=== PATIENT | male | born 1990 | race Caucasian/White ===

== ENCOUNTER 2016-04-12 21:18 | Emergency (ER) | payer OTHER, MEDICAID ==
[~2016-04-12] VITALS: Ht 185.4 cm; Wt 77.3 kg
[2016-04-12 23:49] VITALS: BP 135/90
== END 2016-04-12 23:51 | disposition home or self-care (01) ==
LOC: EMS 21:25
DX: H66.92 Otitis media, unspecified, left ear (principal)
CPT/HCPCS: 99283

== ENCOUNTER 2016-06-12 04:54 | Emergency (ER) | payer OTHER, MEDICAID ==
[~2016-06-12] VITALS: Ht 185.4 cm; Wt 77.3 kg
[2016-06-12] MEDS ORDERED: LIDOCAINE HCL BUFFERED 1% 20 ML VIAL INJ ONE (08:00)
[2016-06-12] MEDS ORDERED: PERTUSS(ACELL),DIPH,TET VAC/PF 0.5 ML VIAL IM ONE (08:00)
[2016-06-12 09:21] VITALS: BP 132/92
== END 2016-06-12 09:50 | disposition home or self-care (01) ==
LOC: EMS 04:55
DX: S01.81XA Laceration without foreign body of other part of head, initial encounter (principal); V19.9XXA Pedal cyclist (driver) (passenger) injured in unspecified traffic accident, initial encounter; Y93.89 Activity, other specified; Y92.89 Other specified places as the place of occurrence of the external cause; Y99.8 Other external cause status
CPT/HCPCS: 12013; 70450; 70486; 90471; 90715; 99284; J3490

== ENCOUNTER 2016-06-18 15:50 | Emergency (ER) | payer OTHER, MEDICAID ==
[~2016-06-18] VITALS: Ht 188 cm; Wt 70.0 kg
[2016-06-18] MEDS ORDERED: CEPH500 PO (15:55)
[2016-06-18 16:20] VITALS: BP 111/81
== END 2016-06-18 16:43 | disposition home or self-care (01) ==
LOC: EMS 15:51
DX: Z48.02 Encounter for removal of sutures (principal)
CPT/HCPCS: 99281; 99406

== ENCOUNTER 2016-11-26 13:03 | Emergency (ER) | payer OTHER, MEDICAID ==
[~2016-11-26] VITALS: Ht 185.4 cm; Wt 77.3 kg
[~2016-11-26 13:03] MED LIST: CEPH500 PO
[2016-11-26 16:34] VITALS: BP 129/92
== END 2016-11-26 17:28 | disposition home or self-care (01) ==
LOC: EMS 13:04
DX: S70.01XA Contusion of right hip, initial encounter (principal); R03.0 Elevated blood-pressure reading, without diagnosis of hypertension; F17.210 Nicotine dependence, cigarettes, uncomplicated; F12.90 Cannabis use, unspecified, uncomplicated; W19.XXXA Unspecified fall, initial encounter; Y93.01 Activity, walking, marching and hiking; Y92.488 Other paved roadways as the place of occurrence of the external cause; Y99.8 Other external cause status
CPT/HCPCS: 73502; 99284

== ENCOUNTER 2016-11-26 18:20 | Emergency (ER) | payer OTHER, MEDICAID ==
[~2016-11-26] VITALS: Ht 185.4 cm; Wt 77.3 kg
[2016-11-26 18:21] VITALS: BP 134/90
[2016-11-26] MEDS ORDERED: ALPRAZolam 0.25 MG TABLET PO ONE (19:00)
[2016-11-26 19:47] LABS: BASOPHILS % (AUTO) 0.5 % (0.0-2.0); EOSINOPHILS % (AUTO) 1.3 % (1.0-6.0); HEMOGLOBIN 14.8 g/dL (13.5-17.5); LYMPHOCYTES # (AUTO) 2.2 K/uL (1.0-4.8); MEAN CORPUSCULAR HEMOGLOBIN 31.2 pg (26.0-34.0); MEAN CORPUSCULAR HGB CONC 34.4 G/dL (31.0-37.0); MEAN CORPUSCULAR VOLUME 91 fL (80-100); MONOCYTES % (AUTO) 11.3 % (2.0-9.0); NEUTROPHILS # (AUTO) 5.3 K/uL (1.8-7.7); NEUTROPHILS % (AUTO) 61.9 % (40.0-70.0); PLATELET COUNT (AUTO) 213 K/uL (150-450); RED BLOOD CELL COUNT(AUTO) 4.74 MIL/uL (4.50-5.90); RED CELL DISTRIBUTION WIDTH 13.6 % (11.5-14.5); WHITE BLOOD COUNT (AUTO) 8.6 K/uL (4.5-11.0)
[2016-11-26 20:02] LABS: ALANINE AMINOTRANSFERASE 53 U/L (12-78); ALBUMIN 4.2 g/dL (3.4-5.0); ANION GAP 14 mmol/L (8-16); ASPARTATE AMINOTRANSFERASE 71 U/L (15-37); BILIRUBIN,TOTAL 1.4 mg/dL (0.1-1.0); CALCIUM, TOTAL 9.1 mg/dL (8.8-10.5); CARBON DIOXIDE 26 mmol/L (22-29); CHLORIDE 101 mmol/L (98-107); CREATININE 1.13 mg/dL (0.60-1.30); GLOMERULAR FILTR. RATE CALC > 60 mL/min (>60); SODIUM SERUM 141 mmol/L (136-145); TOTAL PROTEIN, SERUM 7.4 g/dL (6.4-8.2); UREA NITROGEN, BLOOD 11 mg/dL (7-18)
[2016-11-26 20:25] LABS: POTASSIUM 2.9 mmol/L (3.5-5.1)
[2016-11-26] MEDS ORDERED: POTASSIUM CHL 10 MEQ/WATER 50 ML IV ONE (20:30)
[2016-11-26] MEDS ORDERED: POTASSIUM CHLORIDE 20 MEQ ER TABLET PO ONE (20:30)
== END 2016-11-26 21:22 | disposition left against medical advice (07) ==
LOC: EMS 18:21
DX: F41.9 Anxiety disorder, unspecified (principal); R00.2 Palpitations; E87.6 Hypokalemia; F15.10 Other stimulant abuse, uncomplicated; F17.210 Nicotine dependence, cigarettes, uncomplicated
CPT/HCPCS: 71020; 93005; 99285

== ENCOUNTER 2016-12-28 15:59 | Emergency (ER) | payer OTHER, MEDICAID ==
[~2016-12-28] VITALS: Ht 185.4 cm; Wt 77.3 kg
[2016-12-28 16:02] VITALS: BP 126/94
== END 2016-12-28 17:56 | disposition left against medical advice (07) ==
LOC: EMS 16:00
DX: M79.672 Pain in left foot (principal); M79.89 Other specified soft tissue disorders; Z53.21 Procedure and treatment not carried out due to patient leaving prior to being seen by health care provider

== ENCOUNTER 2017-10-23 09:58 | Emergency (ER) | payer OTHER, MEDICAID ==
[~2017-10-23] VITALS: Ht 185.4 cm; Wt 77.3 kg
[2017-10-23 10:34] VITALS: BP 119/71
[2017-10-23] MEDS ORDERED: GENTAMICIN SULFATE 0.3% OPHTHALMIC SOLUTION 5 ML OD ONE (10:45)
== END 2017-10-23 11:01 | disposition home or self-care (01) ==
LOC: EMS 09:59
DX: H10.89 Other conjunctivitis (principal); R05 Cough
CPT/HCPCS: 99283

== ENCOUNTER 2017-11-01 13:31 | Emergency (ER) | payer MEDICAID, OTHER ==
[~2017-11-01] VITALS: Ht 185.4 cm; Wt 72.7 kg
[2017-11-01 16:05] VITALS: BP 135/75
== END 2017-11-01 16:06 | disposition home or self-care (01) ==
LOC: EMS 13:32
DX: H10.89 Other conjunctivitis (principal); B99.9 Unspecified infectious disease; F17.210 Nicotine dependence, cigarettes, uncomplicated
CPT/HCPCS: 99283; 99406

== ENCOUNTER 2018-02-12 13:13 | Emergency (ER) | payer OTHER ==
[~2018-02-12] VITALS: Ht 185.4 cm; Wt 77.3 kg
[2018-02-12 15:22] VITALS: BP 131/93
== END 2018-02-12 15:24 | disposition home or self-care (01) ==
LOC: EMS 13:14
DX: R20.2 Paresthesia of skin (principal); R03.0 Elevated blood-pressure reading, without diagnosis of hypertension

== ENCOUNTER 2018-04-02 14:36 | Emergency (ER) | payer OTHER ==
[~2018-04-02] VITALS: Ht 185.4 cm; Wt 77.3 kg
[2018-04-02 14:43] VITALS: BP 141/77
== END 2018-04-02 17:10 | disposition left against medical advice (07) ==
LOC: EMS 14:36
DX: R06.02 Shortness of breath (principal); Z53.21 Procedure and treatment not carried out due to patient leaving prior to being seen by health care provider

== ENCOUNTER 2018-05-24 22:19 | Emergency (ER) | payer OTHER ==
[~2018-05-24] VITALS: Ht 185.4 cm; Wt 77.3 kg
[2018-05-25 00:17] VITALS: BP 143/90
== END 2018-05-25 00:48 | disposition home or self-care (01) ==
LOC: EMS 22:20
DX: S80.812A Abrasion, left lower leg, initial encounter (principal); J45.909 Unspecified asthma, uncomplicated; F15.90 Other stimulant use, unspecified, uncomplicated; F17.210 Nicotine dependence, cigarettes, uncomplicated; X58.XXXA Exposure to other specified factors, initial encounter; Y93.89 Activity, other specified; Y92.89 Other specified places as the place of occurrence of the external cause; Y99.8 Other external cause status

== ENCOUNTER 2018-06-09 12:44 | Emergency (ER) | payer OTHER ==
[~2018-06-09] VITALS: Ht 182.9 cm; Wt 72.7 kg
[2018-06-09] MEDS ORDERED: ONDANSETRON HCL 4 MG/2 ML VIAL IVP ONE (13:45)
[2018-06-09] MEDS ORDERED: SODIUM CHLORIDE 0.9% 1,000 ML IV ONE (13:45)
[2018-06-09 14:02] LABS: EOSINOPHILS % (AUTO) 1.2 % (1.0-6.0); HEMATOCRIT 45.2 % (41-53); HEMOGLOBIN 15.7 g/dL (13.5-17.5); LYMPHOCYTES # (AUTO) 2.2 K/uL (1.0-4.8); LYMPHOCYTES % (AUTO) 24.3 % (22.0-44.0); MEAN CORPUSCULAR HEMOGLOBIN 31.1 pg (26.0-34.0); MEAN CORPUSCULAR HGB CONC 34.7 G/dL (31.0-37.0); MEAN CORPUSCULAR VOLUME 90 fL (80-100); MONOCYTES # (AUTO) 1.2 K/uL (0.1-1.0); MONOCYTES % (AUTO) 12.8 % (2.0-9.0); NEUTROPHILS # (AUTO) 5.4 K/uL (1.8-7.7); NEUTROPHILS % (AUTO) 60.7 % (40.0-70.0); PLATELET COUNT (AUTO) 242 K/uL (150-450); RED BLOOD CELL COUNT(AUTO) 5.03 MIL/uL (4.50-5.90); RED CELL DISTRIBUTION WIDTH 13.4 % (11.5-14.5)
[2018-06-09 14:09] LABS: ANION GAP 17 mmol/L (8-16); CALCIUM, TOTAL 10.1 mg/dL (8.8-10.5); CARBON DIOXIDE 25 mmol/L (22-29); CHLORIDE 95 mmol/L (98-107); CREATININE 1.03 mg/dL (0.60-1.30); GLOMERULAR FILTR. RATE CALC > 60 mL/min (>60); GLUCOSE,RANDOM 69 mg/dL (70-110); POTASSIUM 3.5 mmol/L (3.5-5.1); SODIUM SERUM 137 mmol/L (136-145); UREA NITROGEN, BLOOD 21 mg/dL (7-18)
[2018-06-09 14:46] VITALS: BP 141/77
[2018-06-09] MEDS: SODIUM CHLORIDE 0.9% 1,000 ML IV ONE ×2 (14:55→15:13)
[2018-06-09] MEDS ORDERED: ACETAMINOPHEN 500 MG TABLET PO ONE (15:00)
== END 2018-06-09 15:20 | disposition home or self-care (01) ==
LOC: EMS 12:44
DX: B34.9 Viral infection, unspecified (principal); R42 Dizziness and giddiness; M79.10 Myalgia, unspecified site; F15.10 Other stimulant abuse, uncomplicated; J45.909 Unspecified asthma, uncomplicated; F17.210 Nicotine dependence, cigarettes, uncomplicated
CPT/HCPCS: 36415; 71045; 80048; 85025; 96361; 96374; 99284; 99406; J2405; J7030

== ENCOUNTER 2018-09-24 08:39 | Emergency (ER) | payer OTHER ==
[~2018-09-24] VITALS: Ht 177.8 cm; Wt 81.8 kg
[2018-09-24 10:30] VITALS: BP 119/64
== END 2018-09-24 10:32 | disposition home or self-care (01) ==
LOC: EMS 08:40
DX: J06.9 Acute upper respiratory infection, unspecified (principal); J45.909 Unspecified asthma, uncomplicated; F15.90 Other stimulant use, unspecified, uncomplicated; F17.210 Nicotine dependence, cigarettes, uncomplicated

== ENCOUNTER 2018-10-22 15:43 | Emergency (ER) | payer OTHER ==
[~2018-10-22] VITALS: Ht 185.4 cm; Wt 77.3 kg
[2018-10-22 17:41] VITALS: BP 116/76
== END 2018-10-22 17:44 | disposition home or self-care (01) ==
LOC: EMS 15:45
DX: F15.10 Other stimulant abuse, uncomplicated (principal); F10.10 Alcohol abuse, uncomplicated; J45.909 Unspecified asthma, uncomplicated; Y90.9 Presence of alcohol in blood, level not specified

== ENCOUNTER 2019-03-25 04:46 | Emergency (ER) | payer OTHER | END 2019-03-25 05:31 | disposition left against medical advice (07) | LOC: EMS 04:46 | DX: R42 Dizziness and giddiness (principal); Z53.21 Procedure and treatment not carried out due to patient leaving prior to being seen by health care provider ==

== ENCOUNTER 2019-05-02 20:21 | Emergency (ER) | payer OTHER | END 2019-05-02 21:00 | disposition left against medical advice (07) | LOC: EMS 20:22 | DX: R42 Dizziness and giddiness (principal); Z53.21 Procedure and treatment not carried out due to patient leaving prior to being seen by health care provider ==

== ENCOUNTER 2019-05-03 03:29 | Emergency (ER) | payer OTHER ==
[~2019-05-03] VITALS: Ht 185.4 cm; Wt 77.3 kg
[2019-05-03 08:39] VITALS: BP 128/87
== END 2019-05-03 08:45 | disposition left against medical advice (07) ==
LOC: EMS 03:32
DX: J18.9 Pneumonia, unspecified organism (principal); M79.671 Pain in right foot; M79.672 Pain in left foot; J45.909 Unspecified asthma, uncomplicated; F12.90 Cannabis use, unspecified, uncomplicated; F19.90 Other psychoactive substance use, unspecified, uncomplicated; F17.210 Nicotine dependence, cigarettes, uncomplicated; Z59.0 Homelessness

== ENCOUNTER 2019-05-18 01:00 | Emergency (ER) | payer OTHER ==
[~2019-05-18] VITALS: Ht 185.4 cm; Wt 76.0 kg
[2019-05-18 01:07] VITALS: BP 115/77
== END 2019-05-18 02:11 | disposition left against medical advice (07) ==
LOC: EMS 01:04
DX: R21 Rash and other nonspecific skin eruption (principal); Z53.21 Procedure and treatment not carried out due to patient leaving prior to being seen by health care provider

== ENCOUNTER 2019-05-18 08:01 | Emergency (ER) | payer OTHER ==
[~2019-05-18] VITALS: Ht 185.4 cm; Wt 76.0 kg
[2019-05-18] MEDS ORDERED: ACETAMINOPHEN 500 MG TABLET PO ONE (08:30)
[2019-05-18 09:00] VITALS: BP 117/73
== END 2019-05-18 09:12 | disposition home or self-care (01) ==
LOC: EMS 08:02
DX: M79.671 Pain in right foot (principal); M79.672 Pain in left foot; J45.909 Unspecified asthma, uncomplicated; F17.210 Nicotine dependence, cigarettes, uncomplicated; F12.90 Cannabis use, unspecified, uncomplicated; F19.90 Other psychoactive substance use, unspecified, uncomplicated; Z59.0 Homelessness

== ENCOUNTER 2019-05-19 04:22 | Emergency (ER) | payer OTHER | END 2019-05-19 05:18 | disposition left against medical advice (07) | LOC: EMS 04:22 | DX: Z00.00 Encounter for general adult medical examination without abnormal findings (principal); Z53.21 Procedure and treatment not carried out due to patient leaving prior to being seen by health care provider ==

== ENCOUNTER 2019-07-17 01:13 | Emergency (ER) | payer OTHER ==
[~2019-07-17] VITALS: Ht 185.4 cm; Wt 77.3 kg
[2019-07-17 01:15] VITALS: BP 136/85
== END 2019-07-17 02:18 | disposition left against medical advice (07) ==
LOC: EMS 01:13
DX: H92.03 Otalgia, bilateral (principal); Z53.21 Procedure and treatment not carried out due to patient leaving prior to being seen by health care provider

== ENCOUNTER 2020-02-08 03:43 | Emergency (ER) | payer OTHER ==
[~2020-02-08] VITALS: Ht 182.9 cm; Wt 77.3 kg
[2020-02-08] MEDS ORDERED: FAMOTIDINE 20 MG TABLET PO ONE (04:30)
[2020-02-08] MEDS ORDERED: PERMETHRIN 5% 60 GM CREAM TP ONE (04:45)
[2020-02-08] MEDS ORDERED: LORazepam 1 MG TABLET PO ONE (04:45)
[2020-02-08 05:00] VITALS: BP 132/84
== END 2020-02-08 05:26 | disposition home or self-care (01) ==
LOC: EMS 03:47
DX: B86 Scabies (principal); F19.10 Other psychoactive substance abuse, uncomplicated; J45.909 Unspecified asthma, uncomplicated; F12.90 Cannabis use, unspecified, uncomplicated
CPT/HCPCS: Z7502; Z7610

== ENCOUNTER 2020-05-04 22:09 | Emergency (ER) | payer OTHER ==
[~2020-05-04] VITALS: Ht 177.8 cm; Wt 81.4 kg
[2020-05-04 23:00] VITALS: BP 135/86
[2020-05-04] MEDS ORDERED: LORazepam 2 MG TABLET PO ONE (23:00)
[2020-05-04 23:21] LABS: BASOPHILS % (AUTO) 0.8 % (0.0-2.0); EOSINOPHILS % (AUTO) 0.8 % (1.0-6.0); HEMATOCRIT 42.7 % (41-53); HEMOGLOBIN 14.8 g/dL (13.5-17.5); LYMPHOCYTES % (AUTO) 23.1 % (22.0-44.0); MEAN CORPUSCULAR HEMOGLOBIN 31.6 pg (26.0-34.0); MEAN CORPUSCULAR HGB CONC 34.8 G/dL (31.0-37.0); MEAN CORPUSCULAR VOLUME 91 fL (80-100); MONOCYTES # (AUTO) 1.2 K/uL (0.1-1.0); MONOCYTES % (AUTO) 13.4 % (2.0-9.0); NEUTROPHILS # (AUTO) 5.4 K/uL (1.8-7.7); NEUTROPHILS % (AUTO) 61.9 % (40.0-70.0); PLATELET COUNT (AUTO) 221 K/uL (150-450); RED CELL DISTRIBUTION WIDTH 13.5 % (11.5-14.5)
[2020-05-04 23:32] LABS: ANION GAP 12 mmol/L (8-16); CALCIUM, TOTAL 9.2 mg/dL (8.8-10.5); CARBON DIOXIDE 27 mmol/L (22-29); CHLORIDE 97 mmol/L (98-107); CREATININE 1.12 mg/dL (0.60-1.30); GLOMERULAR FILTR. RATE CALC > 60 mL/min (>60); GLUCOSE,RANDOM 86 mg/dL (70-110); POTASSIUM 3.4 mmol/L (3.5-5.1); SODIUM SERUM 136 mmol/L (136-145); UREA NITROGEN, BLOOD 14 mg/dL (7-18)
[2020-05-04 23:36] LABS: COVID AG,FIA SOURCE NASOPHARYNGEAL
[2020-05-04] MEDS ORDERED: POTASSIUM CHLORIDE 20 MEQ ER TABLET PO ONE (23:45)
[2020-05-04 23:58] LABS: ALANINE AMINOTRANSFERASE 41 U/L (12-78); ALBUMIN 4.4 g/dL (3.4-5.0); ALKALINE PHOSPHATASE 76 U/L (46-116); ASPARTATE AMINOTRANSFERASE 44 U/L (15-37); BILIRUBIN,TOTAL 0.9 mg/dL (0.1-1.0); CREATINE KINASE, TOTAL ONLY 1178 U/L (39-308); TOTAL PROTEIN, SERUM 7.5 g/dL (6.4-8.2)
== END 2020-05-05 03:53 | disposition home or self-care (01) ==
LOC: EMS 22:11
DX: M62.82 Rhabdomyolysis (principal); E87.6 Hypokalemia; F15.10 Other stimulant abuse, uncomplicated; J45.909 Unspecified asthma, uncomplicated; F17.210 Nicotine dependence, cigarettes, uncomplicated; Z20.822 Contact with and (suspected) exposure to COVID-19
CPT/HCPCS: 80053; 82550; 84484; 85025; 87426; 93005; 99284; G0480

== ENCOUNTER 2020-05-20 18:53 | Emergency (ER) | payer OTHER ==
[~2020-05-20] VITALS: Ht 185.4 cm; Wt 72.7 kg
[2020-05-20 18:56] VITALS: BP 140/89
== END 2020-05-20 20:35 | disposition left against medical advice (07) ==
LOC: EMS 18:53
DX: M25.511 Pain in right shoulder (principal); Z53.21 Procedure and treatment not carried out due to patient leaving prior to being seen by health care provider

== ENCOUNTER 2020-08-29 21:33 | Emergency (ER) | payer OTHER | END 2020-08-29 21:55 | disposition left against medical advice (07) | LOC: EMS 21:33 | DX: Z00.8 Encounter for other general examination (principal); Z53.21 Procedure and treatment not carried out due to patient leaving prior to being seen by health care provider ==

== ENCOUNTER 2021-05-24 03:45 | Emergency (ER) | payer OTHER ==
[~2021-05-24] VITALS: Ht 185.4 cm; Wt 82.0 kg
[2021-05-24 03:48] VITALS: BP 132/52
[2021-05-24] MEDS ORDERED: DiphenhydrAMINE HCL 50 MG CAPSULE PO ONE (04:30)
== END 2021-05-24 04:40 | disposition home or self-care (01) ==
LOC: EMS 03:46
DX: T78.40XA Allergy, unspecified, initial encounter (principal); R21 Rash and other nonspecific skin eruption; X58.XXXA Exposure to other specified factors, initial encounter
CPT/HCPCS: 99282; Z7502; Z7610

== ENCOUNTER 2021-06-29 16:40 | Emergency (ER) | payer OTHER ==
[~2021-06-29] VITALS: Ht 182.9 cm; Wt 68.2 kg
[2021-06-29 17:02] VITALS: BP 150/67
[2021-06-29] MEDS ORDERED: SODIUM CHLORIDE 0.9% 2,000 ML IV ONE (17:45)
== END 2021-06-29 18:58 | disposition left against medical advice (07) ==
LOC: EMS 16:41
DX: F15.90 Other stimulant use, unspecified, uncomplicated (principal); F41.9 Anxiety disorder, unspecified; J45.909 Unspecified asthma, uncomplicated; F12.90 Cannabis use, unspecified, uncomplicated; F17.210 Nicotine dependence, cigarettes, uncomplicated
CPT/HCPCS: 93005; 99283

== ENCOUNTER 2021-09-29 10:10 | Emergency (ER) | payer OTHER ==
[~2021-09-29] VITALS: Ht 185.4 cm; Wt 77.3 kg
[2021-09-29 10:13] VITALS: BP 122/69
[2021-09-29] MEDS ORDERED: PROM118S5 PO (11:17)
[2021-09-29] MEDS ORDERED: BENZ-70 PO (11:17)
== END 2021-09-29 11:31 | disposition home or self-care (01) ==
LOC: EMS 10:10
DX: U07.1 COVID-19 (principal); F12.90 Cannabis use, unspecified, uncomplicated; F17.210 Nicotine dependence, cigarettes, uncomplicated; J45.909 Unspecified asthma, uncomplicated
CPT/HCPCS: 99283; Z7502

== ENCOUNTER 2021-12-11 14:09 | Emergency (ER) | payer OTHER ==
[~2021-12-11] VITALS: Ht 185.4 cm; Wt 77.3 kg
[~2021-12-11 14:09] MED LIST changes: +BENZ-70 PO; -CEPH500 PO; +PROM118S5 PO
[2021-12-11 14:22] LABS: COVID AG,FIA SOURCE NASAL SWAB
[2021-12-11 14:45] LABS: INFLUENZA TYPE A NEGATIVE FOR TYPE A (NEGATIVE); INFLUENZA TYPE B NEGATIVE FOR TYPE B (NEGATIVE)
[2021-12-11 17:56] VITALS: BP 121/76
[2021-12-11] MEDS ORDERED: PROM118S5 PO (18:14)
[2021-12-11] MEDS ORDERED: BENZ-70 PO (18:14)
[2021-12-11] MEDS ORDERED: ALBUTEROL SULFATE HFA 90 MCG/PUFF 8 GM INHALER IH ONE (18:15)
== END 2021-12-11 18:23 | disposition home or self-care (01) ==
LOC: EMS 14:18
DX: J40 Bronchitis, not specified as acute or chronic (principal); J06.9 Acute upper respiratory infection, unspecified; F17.210 Nicotine dependence, cigarettes, uncomplicated; F12.90 Cannabis use, unspecified, uncomplicated; F15.90 Other stimulant use, unspecified, uncomplicated; Z86.16 Personal history of COVID-19; Z20.822 Contact with and (suspected) exposure to COVID-19
CPT/HCPCS: 87804; 94640; 99283; J3535

== ENCOUNTER 2023-04-07 07:54 | Emergency (ER) | payer OTHER ==
[~2023-04-07] VITALS: Ht 185.4 cm; Wt 90.9 kg
[~2023-04-07 07:54] MED LIST changes: +BENZ-227 PO; -BENZ-70 PO
[2023-04-07 08:00] VITALS: TEMP 98.2
[2023-04-07 08:14] LABS: COVID AG,FIA SOURCE NASAL SWAB
[2023-04-07] MEDS ORDERED: IBUP-1492 PO (08:21)
[2023-04-07] MEDS ORDERED: ACET-3385 PO (08:21)
[2023-04-07] MEDS: ACETAMINOPHEN 500 MG TABLET PO ONE (08:22)
[2023-04-07] MEDS: IBUPROFEN 600 MG TABLET PO ONE (08:22)
[2023-04-07 08:40] LABS: INFLUENZA TYPE A NEGATIVE FOR TYPE A (NEGATIVE); INFLUENZA TYPE B NEGATIVE FOR TYPE B (NEGATIVE)
[2023-04-07 08:52] LABS: SARS-COV2 (COVID) ANTIGEN,FIA Positive (Negative)
[2023-04-07 09:00] VITALS: BP 122/68; PULSE 70; RESP 18
== END 2023-04-07 10:19 | disposition home or self-care (01) ==
LOC: EMS 07:56
DX: U07.1 COVID-19 (principal); F17.210 Nicotine dependence, cigarettes, uncomplicated
CPT/HCPCS: 87430; 87804; 99283

== ENCOUNTER 2023-04-14 08:56 | Emergency (ER) | payer OTHER ==
[~2023-04-14] VITALS: Ht 185.4 cm; Wt 90.9 kg
[~2023-04-14 08:56] MED LIST changes: +ACET-3385 PO; -BENZ-227 PO; +IBUP-1492 PO; -PROM118S5 PO
[2023-04-14 09:09] VITALS: BP 125/74; PULSE 77; RESP 16; TEMP 98.3
[2023-04-14 09:39] LABS: COVID AG,FIA SOURCE NASAL SWAB
[2023-04-14 10:01] LABS: SARS-COV2 (COVID) ANTIGEN,FIA Negative (Negative)
== END 2023-04-14 10:14 | disposition home or self-care (01) ==
LOC: EMS 08:56
DX: J06.9 Acute upper respiratory infection, unspecified (principal); F17.210 Nicotine dependence, cigarettes, uncomplicated; Z20.822 Contact with and (suspected) exposure to COVID-19
CPT/HCPCS: 99283

== ENCOUNTER 2024-03-18 02:59 | Emergency (ER) | payer OTHER ==
[~2024-03-18] VITALS: Ht 185.4 cm; Wt 88.2 kg
[2024-03-18 03:02] VITALS: BP 135/82; PULSE 86; RESP 15; TEMP 98.6; O2SAT 98
[2024-03-18 03:18] LABS: COVID AG,FIA SOURCE NASAL SWAB
[2024-03-18 03:46] LABS: SARS-COV2 (COVID) ANTIGEN,FIA Negative (Negative)
[2024-03-18 03:47] LABS: INFLUENZA TYPE A NEGATIVE FOR TYPE A (NEGATIVE); INFLUENZA TYPE B NEGATIVE FOR TYPE B (NEGATIVE)
[2024-03-18] MEDS ORDERED: DIPH50CA37 PO (05:42)
[2024-03-18] MEDS ORDERED: GUAI100L96 PO (05:42)
[2024-03-18] MEDS ORDERED: ACET-66 PO (05:42)
[2024-03-18] MEDS: DiphenhydrAMINE HCL 25 MG CAPSULE PO ONE (05:57)
[2024-03-18] MEDS: ACETAMINOPHEN 500 MG TABLET PO ONE (05:57)
[2024-03-18] MEDS: GuaiFENesin [SUGAR-FREE] 200 MG/10 ML SOLUTION UDCUP PO ONE (05:58)
== END 2024-03-18 06:03 | disposition home or self-care (01) ==
LOC: EMS 02:59
DX: J06.9 Acute upper respiratory infection, unspecified (principal); F41.9 Anxiety disorder, unspecified; R00.2 Palpitations; F17.210 Nicotine dependence, cigarettes, uncomplicated; Z20.822 Contact with and (suspected) exposure to COVID-19
CPT/HCPCS: 87804; 93005; 99284; Z7502; Z7610

== ENCOUNTER 2024-04-20 04:25 | Emergency (ER) | payer OTHER ==
[~2024-04-20] VITALS: Ht 185.4 cm; Wt 86.4 kg
[~2024-04-20 04:25] MED LIST changes: +ACET-66 PO; +DIPH50CA37 PO; +GUAI100L96 PO
[2024-04-20 04:38] VITALS: TEMP 98
[2024-04-20 07:40] VITALS: BP 125/82; PULSE 84; RESP 16; O2SAT 97
[2024-04-20] MEDS: IBUPROFEN 600 MG TABLET PO ONE (07:49)
== END 2024-04-20 09:44 | disposition home or self-care (01) ==
LOC: EMS 04:25
DX: S00.83XA Contusion of other part of head, initial encounter (principal); F10.129 Alcohol abuse with intoxication, unspecified; F17.210 Nicotine dependence, cigarettes, uncomplicated; W01.0XXA Fall on same level from slipping, tripping and stumbling without subsequent striking against object, initial encounter; Y93.89 Activity, other specified; Y92.89 Other specified places as the place of occurrence of the external cause; Y99.8 Other external cause status; Y90.6 Blood alcohol level of 120-199 mg/100 ml
CPT/HCPCS: 70450; 70486; 72125; 99284

== ENCOUNTER 2024-05-14 20:59 | Emergency (ER) | payer OTHER ==
[~2024-05-14] VITALS: Ht 185.4 cm; Wt 81.8 kg
[2024-05-14 21:05] VITALS: TEMP 98.5
[2024-05-14 23:26] VITALS: BP 138/90; PULSE 114; RESP 20; O2SAT 100
[2024-05-15] MEDS: ACETAMINOPHEN 325 MG TABLET PO ONE (00:33)
[2024-05-15] MEDS: IBUPROFEN 400 MG TABLET PO ONE (00:33)
== END 2024-05-15 01:43 | disposition home or self-care (01) ==
LOC: EMS 20:59
DX: S42.402A Unspecified fracture of lower end of left humerus, initial encounter for closed fracture (principal); F17.210 Nicotine dependence, cigarettes, uncomplicated; W19.XXXA Unspecified fall, initial encounter; Y93.89 Activity, other specified; Y92.89 Other specified places as the place of occurrence of the external cause; Y99.8 Other external cause status
CPT/HCPCS: 29105; 99283

== ENCOUNTER 2024-07-14 13:11 | Emergency (ER) | payer OTHER ==
[~2024-07-14] VITALS: Ht 185.4 cm; Wt 77.3 kg
[2024-07-14 13:48] VITALS: TEMP 98.2
[2024-07-14 16:05] VITALS: BP 116/81; PULSE 109; RESP 20; O2SAT 99
[2024-07-14] MEDS: TraMADol HCL 50 MG TABLET PO ONE (16:57)
== END 2024-07-14 17:12 | disposition home or self-care (01) ==
LOC: EMS 13:15
DX: M25.572 Pain in left ankle and joints of left foot (principal); F17.210 Nicotine dependence, cigarettes, uncomplicated; F15.90 Other stimulant use, unspecified, uncomplicated; Z72.89 Other problems related to lifestyle; Z79.899 Other long term (current) drug therapy
CPT/HCPCS: 72040; 72100; 73503; 99284